=== PATIENT | female | born 1940 | race Caucasian/White ===

== ENCOUNTER 2017-06-19 14:43 | Emergency (ER) | payer MEDICARE, OTHER ==
--- NOTE | 2017-06-19 15:25 | ERNOTE ---
Abdominal HPI - Narrative Date of Service: 06/19/17 - General Chief Complaint: Abdominal Pain Time Seen by Provider: 06/19/17 15:10 Source: patient Exam Limitations: no limitations - Immun/Allergies/Home Medications Immunizatons: IMMUNIZATION HX Immunizations Up to Date Yes History of Influenza Vaccine No Hx Pneumococcal Vaccination Yes Allergies/Adverse Reactions: Allergies Sulfa (Sulfonamide Antibiotics) [Sulfa(Sulfonamide Antibiotics)] Allergy ( Unknown, Verified 06/19/17 15:02) cyclosporine Allergy (Verified 06/19/17 15:02) Home Medications: HOME MEDICATIONS Ambrisentan [Letairis] 10 mg PO DAILY 09/17/13 [Last Taken Unknown] Aspirin [Aspirin Enteric Coated] 81 mg PO DAILY 09/17/13 [Last Taken Unknown] Atenolol [Tenormin] 50 mg PO DAILY 09/17/13 [Last Taken Unknown] Atorvastatin Calcium [Lipitor] 20 mg PO DAILY 09/17/13 [Last Taken Unknown] Calcium Carb, Citrate/Vit D3 [Citracal + D ER Tablet] 1 each PO DAILY 09/17/13 [ Last Taken Unknown] Furosemide [Lasix] 40 mg PO DAILY PRN 09/17/13 [Last Taken Unknown] Lisinopril [Zestril] 2.5 mg PO DAILY 09/17/13 [Last Taken Unknown] Potassium Chloride [Klor-Con 10] 10 meq PO DAILY PRN 09/17/13 [Last Taken Unknown] diphenhydrAMINE HCL [Benadryl] 25 mg PO HS PRN 09/17/13 [Last Taken Unknown] Amox Tr/Potassium Clavulanate [Augmentin 875-125 Tablet] 875 mg PO Q12H [Last Taken Unknown] Benzonatate [Tessalon] 100 mg PO TID 11/25/14 [Last Taken Unknown] Promethazine HCl/Codeine [Phenergan W/Codeine Syrup] 5 ml PO Q4H PRN 11/25/14 [ Last Taken Unknown] predniSONE [Prednisone] 3 tab PO DAILY #15 tab 11/26/14 [Last Taken Unknown] - History of Present Illness Narrative: Pt. comes in with C/O RLQ pain for a day that is intermittent sharp lasts for a brief second and resolves without treatment. Pt. denies any prehospital treatment but does state that she has some mild nausea. Pt. also denies any SOB , CP, fever, alleviating factors or aggravating factors. Review of Systems - Review of Systems Constitutional: Present: no symptoms reported. Absent: recent illness, fever, chills, weakness, fatigue, malaise EYE: Present: no symptoms reported ENT: Present: no symptoms reported Respiratory: Present: no symptoms reported. Absent: shortness of breath, cough , wheezing Cardiology: Present: no symptoms reported. Absent: chest pain, palpitations, edema Gastrointestinal/Abdominal: Present: nausea, abdominal pain - RLQ intermittent . Absent: vomiting, diarrhea Genitourinary: Present: no symptoms reported Musculoskeletal: Present: no symptoms reported. Absent: back pain, joint pain Neurological: Present: no symptoms reported. Absent: headache, dizziness/light- headedness, numbness, tingling All Other Systems: All systems neg except as marked - Patient's Past Medical History Patient History - Medical: Cataracts, Other Patient History - Cardiac/Respiratory: Hypertension, Hyperlipidemia Patient History - Cancer: No Hx of Cancer Patient History - Surgical Procedures: Cataracts, Cholecystectomy, Hysterectomy , T & A Patient History - Other: None LMP (females 10-50): Menopausal - Social History Living Situations: home Abuse History: No History of abuse Psych History: No pertinent hx Smoking Status: Former smoker Alcohol Use: none Drug Use: none - Immunizations Immunizations Up to Date: Yes Hx Pneumococcal Vaccination: Yes History of Influenza Vaccine: No Physical Exam - Physical Exam General Appearance: Present: wd/wn, alert, no apparent distress Head Exam: Present: normal inspection, no evidence of injury Eye Exam: Normal inspection: bilateral Respiratory: Present: no respiratory distress, normal breath sounds, no accessory muscle use, chest nontender, lungs clear Cardiovascular/Chest: Present: regular rate, rhythm, no murmur, normal peripheral pulses Gastrointestinal/Abdominal: Present: normal bowel sounds, nontender, nondistended, no organomegaly. Absent: tenderness, McBurney sign, Obturator sign, Miguel sign, Psoas sign Back Exam: Present: normal inspection, normal range of motion, no CVA tenderness , no vertebral tenderness Extremity Exam: Present: normal inspection, non-tender, normal range of motion, no edema Neurological Exam: Present: alert, oriented, normal mood/affect, no motor/ sensory deficits Skin Exam: Present: normal color, warm/dry. Absent: pallor, skin rash ED Progress - Date and Time Seen: Date and Time: 06/19/17 17:36 Pt. is pain free except intermittently for a very short period of time, is afebrile and has a negative WBC. As pt. abdomen is non tender without rebound I do not feel that pt. needs CT at this time will have her follow up with her PCP after performing bowel regimen and perform further work up if necessary. - Results and Orders Patient's Lab Results:: I have reviewed the patient's lab results. - Vital Signs Patient's Vital Signs:: I have reviewed the patient's vital signs. Vital Signs: Vital Signs 06/19/17 14:56 Temperature 37.2 C Pulse Rate 55 L Respiratory 16 Rate Blood Pressure 158/81 O2 Sat by Pulse 97 Oximetry - X-Ray X-Ray #1 X-Ray: abdomen Interpretation: Reviewed by me X-ray Comments: mild stool retention, non obstructive bowel gas pattern. - Progress/Reassessment Chief Complaint: Abdominal Pain Progress:: Unchanged Departure Clinical Impression: Constipation Qualifiers: Constipation type: slow transit constipation Qualified Code(s): K59.01 - Slow transit constipation - Departure Disposition: Home self-care Condition: Good Instructions: Constipation, Adult, [id number] Additional Instructions: Please continue current medications for IBS. Referrals: Prieto Kwan MD [Primary Care Provider] -
[2017-06-19 15:38] LABS: Hematocrit 43.6 % (37.0-47.0); Hemoglobin 14.5 gm/dL (12.5-16.0); Mean Corpuscular Hemoglobin 30.6 pg (27-31); Mean Corpuscular Hgb Conc 33.3 g/dl (32-36); Mean Platelet Volume 9.5 fl (6.0-9.5); Neutrophil # 5.1 K/mm3 (1.3-6.0); Neutrophil % 66.7 % (42-75.0); Platelet Count 226 K/mm3 (150-450); Red Blood Count 4.74 M/mm3 (4.2-5.4); White Blood Count 7.6 K/mm3 (4.0-10.5)
[2017-06-19 15:46] LABS: Urine Bilirubin Negative (NEGATIVE); Urine Ketone Negative (NEGATIVE); Urine Nitrite Negative (NEGATIVE); Urine Protein Negative (NEGATIVE); Urine Urobilinogen Normal (NORMAL)
[2017-06-19 15:53] LABS: Albumin * 3.9 gm/dl (3.4-5.0); Anion Gap 14.3 mmol/L (6.8-13.8); BUN/Creatinine Ratio 19.4 (9.0-21.6); Bilirubin, Total 0.5 mg/dL (0.0-1.1); Ca. Corrected For Albumin 8.8 mg/dL (8.4-10.2); Carbon Dioxide 27.7 mmol/L (24-32.6); Total Protein 7.3 gm/dL (6.2-8.2)
[2017-06-19 16:01] LABS: Urine Appearance Clear; Urine Bacteria 1+; Urine Blood 5 /ul (NEGATIVE); Urine Color Yellow; Urine RBC TRACE /hpf (0-5); Urine WBC None Seen /hpf (0-5)
[2017-06-19 16:29] VITALS: BP 126/53
== END 2017-06-19 16:34 | disposition home or self-care (01) ==
LOC: ER 14:43
DX: K59.01 Slow transit constipation (principal); Z87.891 Personal history of nicotine dependence